=== PATIENT | female | born 1955 | race Caucasian/White ===

== ENCOUNTER 2016-10-10 21:04 | Inpatient (IN) | payer BC ==
[~2016-10-10] VITALS: Ht 160 cm; Wt 110.7 kg
[2016-10-10] MEDS ORDERED: MORPHINE SULFATE 2 MG/1 ML DISP.SYRIN IV ONE (21:45)
[2016-10-10] MEDS ORDERED: ONDANSETRON 4 MG/2 ML VIAL IV ONE (21:45)
[2016-10-10] MEDS ORDERED: MORPHINE SULFATE 4 MG/1 ML DISP.SYRIN ONE (22:01)
[2016-10-10] MEDS ORDERED: ONDANSETRON 4 MG/2 ML VIAL ONE (22:01)
[2016-10-10 22:23] LABS: BASOPHILS # (AUTO) 0.1 K/uL (0.0-8.0); BASOPHILS % (AUTO) 0.5 % (0.0-2.0); EOSINOPHILS # (AUTO) 0.1 K/uL (0.0-0.7); EOSINOPHILS % (AUTO) 1.1 % (0.0-7.0); HEMATOCRIT 43.3 % (37-47); HEMOGLOBIN 14.1 G/DL (12.0-16.0); LYMPHOCYTES # (AUTO) 1.6 K/UL (0.8-4.8); LYMPHOCYTES % (AUTO) 11.7 % (20.5-51.5); MEAN CORPUSCULAR HEMOGLOBIN 28.5 UUG (27.0-31.0); MEAN CORPUSCULAR HGB CONC 33 g/dL (32.0-37.0); MEAN CORPUSCULAR VOLUME 87.6 FL (81.0-99.0); MONOCYTES # (AUTO) 0.7 K/UL (0.1-1.30); NEUTROPHILS # (AUTO) 10.9 K/UL (1.8-8.9); NEUTROPHILS % (AUTO) 81.7 % (38.5-71.5); PLATELET COUNT (AUTO) 363 K/UL (150-450); RED BLOOD CELL COUNT(AUTO) 4.94 MIL/UL (4.2-5.4); WHITE BLOOD COUNT (AUTO) 13.4 K/UL (4.0-11.2)
[2016-10-10 22:25] LABS: CREATININE 0.9 mg/dL (0.6-1.3); POTASSIUM 4.1 mmol/L (3.5-5.1)
[2016-10-10 22:38] LABS: BILIRUBIN,DIRECT 0.1 mg/dL (0.0-0.2); BILIRUBIN,TOTAL 0.3 mg/dL (0.1-1.0); TOTAL PROTEIN, SERUM 7.9 g/dL (6.4-8.2)
[2016-10-11] MEDS ORDERED: HYDROCODONE/APAP 5-325MG TABLET PO PRN (00:45)
[2016-10-11] MEDS ORDERED: ACETAMINOPHEN 325 MG TABLET PO PRN (00:45)
[2016-10-11] MEDS ORDERED: ONDANSETRON 4 MG/2 ML VIAL IV PRN (00:45)
[2016-10-11] MEDS ORDERED: MAGNESIUM HYDROXIDE 30 ML LIQUID UDC PO PRN (00:45)
[2016-10-11] MEDS ORDERED: Z GUARD REMEDY PASTE 57 GM TUBE TOP PRN (00:45)
--- NOTE | 2016-10-11 01:23 | NUR ---
Pt. admitted to Telemetry , under care of Dr. Perez. Dx: Ataxia Belongs List completed
--- NOTE | 2016-10-11 01:35 | NUR ---
PT RECEIVED FROM ED VIA [employer]. AT BEDSIDE. PT A/OX4. ABLE TO MAKE NEEDS KNOWN. V/S STABLE. NO SIGNS OF ACUTE DISTRESS. NO COMPLAINTS OF PAIN AT THIS TIME. 86 SINUS RHYTHM ON THE TELE MONITOR. FALL PRECAUTIONS IN PLACE. SAFETY MEASURES IMPLEMENTED. CALL LIGHT WITHIN REACH. WILL CONTINUE TO MONITOR. WILL CONTINUE TO MONITOR.
[2016-10-11 01:55] VITALS: BP 129/69
[2016-10-11 04:00] VITALS: BP 126/70
[2016-10-11] MEDS ORDERED: BLOOD SUGAR DIAGNOSTIC 1 EACH STRIP VI SCH ×2 (06:00→07:30)
--- NOTE | 2016-10-11 06:03 | NUR ---
END OF SHIFT NOTES. PT SLEPT INTERMITTENTLY DURING SHIFT. AT BEDSIDE. V/S STABLE. NO SIGNS OF ACUTE DISTRESS. NO COMPLAINTS OF PAIN. 86 SINUS RHYTHM ON THE TELE MONITOR. NEEDS ATTENDED. SAFETY MAINTAINED. CALL LIGHT WITHIN REACH.
[2016-10-11 07:24] LABS: THYROID STIMULATING HORMONE 2.528 mIU/mL (0.358-3.740)
[2016-10-11 07:33] LABS: BILIRUBIN,TOTAL 0.6 mg/dL (0.2-1.0); CREATININE 0.9 mg/dL (0.6-1.3); POTASSIUM 4.3 mmol/L (3.5-5.1); TOTAL PROTEIN, SERUM 7.7 g/dL (6.4-8.2)
[2016-10-11 07:38] LABS: EOSINOPHILS # (AUTO) 0.1 K/uL (0.0-0.7); HEMATOCRIT 42.3 % (37-47); HEMOGLOBIN 13.7 G/DL (12.0-16.0); LYMPHOCYTES % (AUTO) 14.5 % (20.5-51.5); MEAN CORPUSCULAR HEMOGLOBIN 28.5 UUG (27.0-31.0); MEAN CORPUSCULAR HGB CONC 32 g/dL (32.0-37.0); MEAN CORPUSCULAR VOLUME 87.9 FL (81.0-99.0); MONOCYTES # (AUTO) 0.7 K/UL (0.1-1.30); MONOCYTES % (AUTO) 5.3 % (0.0-11.0); NEUTROPHILS # (AUTO) 10.9 K/UL (1.8-8.9); NEUTROPHILS % (AUTO) 79.2 % (38.5-71.5); PLATELET COUNT (AUTO) 364 K/UL (150-450); RED BLOOD CELL COUNT(AUTO) 4.81 MIL/UL (4.2-5.4); WHITE BLOOD COUNT (AUTO) 13.7 K/UL (4.0-11.2)
[2016-10-11] MEDS ORDERED: DEXTROSE 50% 50 ML DISP.SYRIN IV PRN (08:00)
[2016-10-11] MEDS ORDERED: INSULIN REGULAR, HUMAN 300 UNITS/3 ML VIAL SQ PRN (08:00)
[2016-10-11] MEDS: BLOOD SUGAR DIAGNOSTIC 1 EACH STRIP VI SCH ×4 (08:02→20:52)
[2016-10-11] MEDS: INSULIN REGULAR, HUMAN 300 UNIT/3 ML VIAL SQ PRN ×3 (08:03→17:02)
[2016-10-11] MEDS: ASPIRIN EC 325 MG TABLET.DR PO SCH (08:19)
--- NOTE | 2016-10-11 09:12 | NUR ---
PT AWAKE IN BED, IN NO ACUTE DISTRESS. BS THIS AM 393, LAB CALLED AT 0744 WITH CRITICAL GLUCOSE 401. DR WADDELL CALLED AT 0745 WITH ORDERS FOR AGGRESSIVE INSULIN SS AND REGULAR INSULIN. RECHECKED BS PRIOR TO GIVING INSULIN, BS 465. PT RECEIVED 20 UNITS OF REGULAR INSULIN PER SLIDING SCALE. RESTING COMFORTABLY IN BED AT THIS TIME, [id number]. CALL LIGHT IN REACH, ALL SAFETY AND COMFORT MEASURES ATTENDED TO, WILL MONITOR CLOSELY
[2016-10-11] MEDS: PANTOPRAZOLE SODIUM 40 MG TABLET.DR PO SCH (09:24)
[2016-10-11 11:29] VITALS: BP 129/60
[2016-10-11] MEDS ORDERED: DULO60CA45 PO (12:50)
[2016-10-11] MEDS ORDERED: ESTR0.5T PO (12:50)
[2016-10-11] MEDS ORDERED: FURO40TA5 PO (12:50)
[2016-10-11] MEDS ORDERED: OMEP20CA10 PO (12:50)
[2016-10-11] MEDS ORDERED: ATOR40TA PO (12:50)
[2016-10-11] MEDS ORDERED: SPIR50TA3 PO (12:52)
[2016-10-11 15:11] VITALS: BP_SYST 127; BP_SYST 129; BP_DIAS 60; BP_DIAS 69
[2016-10-11] MEDS ORDERED: IV 1/2NS 1000 ML 1,000 ML IV PRN (16:00)
--- NOTE | 2016-10-11 16:00 | NUR ---
URINE CULTURE ORDERED AT BEGINNING OF SHIFT, EXPLAINED TO PT THIS AM IN NEED OF URINE, PT STATED UNABLE TO GO AT THAT TIME, GAVE PT WATER AND ENCOURAGED PT TO SIT ON TOILET AND TRY PT STATED "IN A MINUTE" WENT BACK SEVERAL TIMES AND EXPLAINED TO PT THE IMPORTANCE OF RECEIVING URINE IN URGENT MATTER. PT HAS HAD LUNCH AND FLUIDS AND PT NOW SPEAKING TO BODY BUILDER, I POLITELY INTERRUPTED AND ASKED THAT SHE GO TO RESTROOM. PT RESPONDED " I DO NOT THINK I CAN GO RIGHT NOW" TOLD PT THAT THE DR HAD ORDERED IT STAT AND PT RESPONDED "WELL IS THE DOCTOR GOING TO COME SEE ME" EXPLAINED TO PT THAT DR WAS MAKING ROUNDS AND WOULD BE IN TO SEE HER SOON HOWEVER WE NEED A URINE NOW. PT SAID IN A MINUTE AND IMMEDIATELY WENT BACK TO SPEAKING TO BODY BUILDER. WILL TRY AGAIN
[2016-10-11 16:42] LABS: *BLOOD, URINE NEGATIVE (NEGATIVE); *CLARITY,URINE CLEAR (CLEAR); *COLOR,URINE YELLOW (YELLOW); *KETONES,URINE TRACE (NEGATIVE); *PROTEIN,URINE TRACE (NEGATIVE); LEUKOCYTE ESTERASE ,URINE NEGATIVE (NEGATIVE); NITRITE, URINE NEGATIVE (NEGATIVE); PH,URINE 5.5 (5.0-8.0)
[2016-10-11 16:48] LABS: *BILIRUBIN,URIN 1+ (NEGATIVE); UGLUCOSE 2+ (NEGATIVE)
[2016-10-11 16:51] LABS: *AMPHETAMINE, URINE NEGATIVE (NEGATIVE); *BARBITURATE, URINE NEGATIVE (NEGATIVE); *CANNABINOID, URINE NEGATIVE (NEGATIVE); *COCCAINE, URINE NEGATIVE (NEGATIVE); *OPIATE, URINE POSITIVE (NEGATIVE); *PHENCYCLIDINE SCREEN,URINE NEGATIVE (NEGATIVE)
[2016-10-11 16:56] LABS: BACTERIA,URINE NONE SEEN /HPF (NONE SEEN); RBC,URINE 0-3 /HPF (0-3); SQUAMOUS EPITHELIAL CELL,UR FEW /HPF (NONE SEEN); WBC,URINE NONE SEEN /HPF (0-3)
[2016-10-11] MEDS ORDERED: Medication Not On Formulary EA (Estradiol 0.5 MG) PO SCH (18:00)
--- NOTE | 2016-10-11 18:19 | NUR ---
PT AWAKE IN BED EATING DINNER, NO ACUTE DISTRESS, LAST BS DOWN TO 139. NO NEEDS AT HIS TIME, ALL SAFETY AND COMFORT MEASURES MAINTAINED THROUGHOUT SHIFT, CALL LIGHT IN REACH, WILL CONTINUE TO MONITOR
[2016-10-11] MEDS ORDERED: INSU100V7 SQ (18:39)
--- NOTE | 2016-10-11 19:10 | NUR ---
Bedside reporting with PAULINA Polo. Patient awake during initial rounds busy talking on the phone. at bedside. No s/s of pain/discomforts noted. Safety measures and afll precaution maintain. Continue care as planned.
[2016-10-11 20:00] VITALS: BP 125/65
[2016-10-11] MEDS ORDERED: INSULIN DETEMIR 300 UNIT/3 ML CARTRIDGE SQ SCH (21:00)
[2016-10-11] MEDS ORDERED: INSULIN GLARGINE,HUM 300 UNITS/3 ML CARTRIDGE SQ SCH (21:00)
[2016-10-11] MEDS ORDERED: ATORVASTATIN 40 MG TABLET PO SCH (21:00)
[2016-10-11] MEDS ORDERED: DULOXETINE 60 MG CAPSULE.DR PO SCH (21:00)
--- NOTE | 2016-10-11 21:00 | NUR ---
Ambulating in the hallway with walker with assistance and supervision. Ambulates with slow and quite steady gait. No SOB/SOBOE presented.
[2016-10-12 04:00] VITALS: BP 132/71
[2016-10-12] MEDS: PANTOPRAZOLE SODIUM 40 MG TABLET.DR PO SCH (06:02)
[2016-10-12] MEDS: BLOOD SUGAR DIAGNOSTIC 1 EACH STRIP VI SCH ×3 (06:03→17:27)
[2016-10-12 06:23] LABS: BASOPHILS # (AUTO) 0.1 K/uL (0.0-8.0); BASOPHILS % (AUTO) 0.5 % (0.0-2.0); EOSINOPHILS # (AUTO) 0.2 K/uL (0.0-0.7); EOSINOPHILS % (AUTO) 1.8 % (0.0-7.0); HEMATOCRIT 38.3 % (37-47); HEMOGLOBIN 12.5 G/DL (12.0-16.0); LYMPHOCYTES # (AUTO) 2.2 K/UL (0.8-4.8); LYMPHOCYTES % (AUTO) 19.8 % (20.5-51.5); MEAN CORPUSCULAR HEMOGLOBIN 28.6 UUG (27.0-31.0); MEAN CORPUSCULAR HGB CONC 33 g/dL (32.0-37.0); MEAN CORPUSCULAR VOLUME 87.5 FL (81.0-99.0); MONOCYTES # (AUTO) 0.8 K/UL (0.1-1.30); MONOCYTES % (AUTO) 6.9 % (0.0-11.0); NEUTROPHILS # (AUTO) 7.9 K/UL (1.8-8.9); PLATELET COUNT (AUTO) 374 K/UL (150-450); RED BLOOD CELL COUNT(AUTO) 4.38 MIL/UL (4.2-5.4); WHITE BLOOD COUNT (AUTO) 11.2 K/UL (4.0-11.2)
[2016-10-12 06:32] LABS: BILIRUBIN,TOTAL 0.3 mg/dL (0.2-1.0); CREATININE 0.7 mg/dL (0.6-1.3); PHOSPHOROUS 3.2 mg/dL (2.5-4.9); TOTAL PROTEIN, SERUM 7.1 g/dL (6.4-8.2)
--- NOTE | 2016-10-12 07:15 | NUR ---
Bedside reporting with PAULINA Lawrence. patient slept well. No complaint presented all night. All needs attended and met. No significant event reported. remains at bedside. Continue care as planned.
[2016-10-12] MEDS: ASPIRIN EC 325 MG TABLET.DR PO SCH (08:22)
[2016-10-12] MEDS: INSULIN REGULAR, HUMAN 300 UNIT/3 ML VIAL SQ PRN ×3 (08:24→17:29)
--- NOTE | 2016-10-12 09:00 | NUR ---
RECEIVED PATIENT AWAKE ALERT AND ORIENTED FORGETFUL AT TIMES FOR INSTANCE CALLS FOR SOMETHING BUT WILL NOT REMEMBER WHY SHE CALLED ALL NEEDS ANTICIPATED AND SATISFIED MADE COMFORTABLE.
--- NOTE | 2016-10-12 10:00 | NUR ---
PATIENT IS RESTING ALERT TO SELF ONLY WITH CONFUSSION AND DISORIENTATION REQUIRING ONE ON ONE SITTER FOR SAFETY RELATED TO POOR SAFETY AWARENESS ALL NEEDS ANTICIPATED AND SATISFIED PATIENT SEEN BY NINO CHAVES AND ALSO SPOKE WITH THE PATIENTS NIECE AND UPDATED HER ON PATIENTS CONDITION. Addendum: 10/12/16 at 1559 by ABDULLAHI WALLIS RN ERROR WRONG PATIENT.
[2016-10-12 11:44] VITALS: BP 144/60
--- NOTE | 2016-10-12 13:00 | NUR ---
PATIENT WAS SEEN BY DR KENNEY AND PER PATIENT DR KENNEY IS PLANNING TO DISCHARGE HER TODAY BUT NO DISCHARGE ORDER AT THIS TIME
--- NOTE | 2016-10-12 13:02 | NUR ---
The patient will be discharged today back home [[address], [place] [address] Wooten. She is in agreement with her discharge and her family will be picking her up via private car. She will follow-up with her PCP. Her RN, Melinda, is aware of her discharge plan.
[2016-10-12 15:44] VITALS: BP 124/52
[2016-10-12] MEDS ORDERED: INSU100V7 SQ (16:43)
[2016-10-12] MEDS ORDERED: ASPI81TA31 PO (16:43)
--- NOTE | 2016-10-12 18:30 | NUR ---
DISCHARGE INSTRUCTIONS GIVEN TO THE PATIENT PATIENT INSTRUCTED TO GET OVER THE COUNTER ASA 81 MILLIGRAM AND TO INCREASE HER LANTUS TO 80 UNITS AND TO CALL FOR A FOLLOW UP APPOINTMENT WITH HER PRIMARY DOCTOR,COMMERCIAL ATTORNEY AND BILINGUAL PATIENT SUPPORT CASEWORKER AND SHE EXPRESSED UNDERSTANDING IV HEPLOCK REMOVED AND PATIENT IS CURRENTLY WAITING FOR HER RIDE WITH HER IGOR AT HER BEDSIDE.
--- NOTE | 2016-10-12 19:25 | NUR ---
PATIENT DISCHARGED ACCOMPANIED BY HER IN SATISFACTORY CONDITION WITH ALL HER PERSONAL BELONGINGS .
[2016-10-14] MEDS ORDERED: ESTRADIOL 1 MG TABLET PO SCH (09:00)
== END 2016-10-12 19:25 | disposition home or self-care (01) | DRG 149 ==
LOC: ER 21:05 → TELE 10-11 01:11 → MED 10-11 18:58
PROVIDERS: ADMIT Family Medicine; ATTEND Family Medicine
DX: H81.10 Benign paroxysmal vertigo, unspecified ear (principal); Z68.41 Body mass index [BMI] 40.0-44.9, adult; I10 Essential (primary) hypertension; K21.9 Gastro-esophageal reflux disease without esophagitis; E10.8 Type 1 diabetes mellitus with unspecified complications; D72.829 Elevated white blood cell count, unspecified; Z79.4 Long term (current) use of insulin; E10.65 Type 1 diabetes mellitus with hyperglycemia; E66.01 Morbid (severe) obesity due to excess calories; E78.5 Hyperlipidemia, unspecified; F41.9 Anxiety disorder, unspecified; E10.42 Type 1 diabetes mellitus with diabetic polyneuropathy; F32.9 Major depressive disorder, single episode, unspecified; Z79.899 Other long term (current) drug therapy
CPT/HCPCS: 36415; 70030-TC; 70450; 71010; 80307; 83605; 83735; 84100; 84443; 85025; 85651; 85730; 87040; 87086; 92523; 92610; 93005; 97161; A4663; J1815; J2270; J2405; J3490